=== PATIENT | female | born 1980 | race Caucasian/White ===

== ENCOUNTER 2016-10-27 09:03 | Emergency (ER) | payer OTHER | END 2016-10-27 11:35 | disposition home or self-care (01) | LOC: ER 09:03 | CPT/HCPCS: 71020; 93005 ==

== ENCOUNTER 2016-11-10 22:37 | Emergency (ER) | payer OTHER ==
[2016-11-10] MEDS ORDERED: OPTIRAY 350 100 ML VIAL HMH IV ONE (22:38)
[2016-11-11] MEDS ORDERED: SODIUM CHLORIDE 0.9% 1,000 ML ONE (01:57)
[2016-11-11] MEDS ORDERED: ONDANSETRON 4 MG VIAL ONE (01:57)
[2016-11-11] MEDS ORDERED: DILAUDID 1 MG/ML AMP ONE (01:57)
== END 2016-11-11 04:14 | disposition home or self-care (01) ==
LOC: ER 22:37
DX: B02.9 Zoster without complications (principal); R10.31 Right lower quadrant pain
CPT/HCPCS: 36415; 74177; 80053; 81001; 83690; 84703; 85025; 87088; 96361; 96374; 96375